=== PATIENT | male | born 1985 | race Two or more races ===

== ENCOUNTER 2016-07-03 12:55 | Emergency (ER) | payer MEDICARE, OTHER ==
[~2016-07-03] VITALS: Ht 177.8 cm; Wt 108.0 kg
[~2016-07-03 12:55] MED LIST: ATEN50TA PO; HYDR-2666 PO; TRAM-29 PO; ZOLP10TA PO
[2016-07-03 13:31] VITALS: BP 170/102
[2016-07-03] MEDS ORDERED: TRAM50TA PO (13:43)
--- NOTE | 2016-07-03 13:43 | PHYS DOC ---
Past Medical History Past Medical History: Diabetes-Type II, High Cholesterol, Hypertension, Other Additional Past Medical Histor: depression, bipolar, OCD, PTSD, CHRONIC BACK PAIN Past Surgical History: Other Additional Past Surgical Histo: right foot surgery, RIGHT FINGER SX Alcohol Use: None Drug Use: None Adult General Chief Complaint Chief Complaint: PAIN CONTROL HPI HPI Patient is a 31 year old male presents emergency room today with complaint of low back pain that is chronic in nature. Patient is reliant on take tramadol daily to help manage his neck pain as well as taking hydrocodone containing pain medication at night. Patient states she is currently out of medication. Patient states he is pending an appointment with his primary care doctor in 2 weeks for reevaluation. Patient states that he will call tomorrow morning to schedule follow-up appointment. Review of Systems Review of Systems Constitutional: Denies fever or chills [] Eyes: Denies change in visual acuity, redness, or eye pain [] HENT: Denies nasal congestion or sore throat [] Respiratory: Denies cough or shortness of breath [] Cardiovascular: No additional information not addressed in HPI [] GI: Denies abdominal pain, nausea, vomiting, bloody stools or diarrhea [] : Denies dysuria or hematuria [] Musculoskeletal: Patient reports nonradiating low back pain. Integument: Denies rash or skin lesions [] Neurologic: Patient denies saddle anesthesia or incontinence of urine and bowel. Patient denies any sensory changes or focal weakness. Endocrine: Denies polyuria or polydipsia [] Allergies Allergies Allergies Coded Allergies Type Severity Reaction Last Updated Verified oxycodone Allergy Intermediate Itching 07/07/15 Yes Physical Exam Physical Exam Constitutional: Well developed, well nourished, no acute distress, non-toxic appearance. [] HENT: Normocephalic, atraumatic, bilateral external ears normal, oropharynx moist, no oral exudates, nose normal. [] Eyes: PERRLA, EOMI, conjunctiva normal, no discharge. [] Neck: Normal range of motion, no tenderness, supple, no stridor. [] Cardiovascular:Heart rate regular rhythm, no murmur [] Lungs & Thorax: Bilateral breath sounds clear to auscultation [] Abdomen: Bowel sounds normal, soft, no tenderness, no masses, no pulsatile masses. [] Skin: Warm, dry, no erythema, no rash. [] Back: Patient's back is without any evidence of injury or deformity. There is [place] tenderness to patient's lower back without palpable defect, deformity or spasm. Extremities: No tenderness, no cyanosis, no clubbing, ROM intact, no edema. [] Neurologic: Alert and oriented X 3, normal motor function, normal sensory function, no focal deficits noted. [] Psychologic: Affect normal, judgement normal, mood normal. [] Current Patient Data Vital Signs Vital Signs Date Time Temp Pulse Resp B/P Pulse Ox O2 Delivery O2 Flow Rate FiO2 07/03/16 13:31 98.2 98 18 98 Room Air 98.2 EKG EKG [] Radiology/Procedures Radiology/Procedures [] Course & Med Decision Making Course & Med Decision Making Pertinent Labs and Imaging studies reviewed. (See chart for details) [] Dragon Disclaimer Dragon Disclaimer This electronic medical record was generated, in whole or in part, using a voice recognition dictation system. Departure Departure Impression: Primary Impression: Chronic back pain Disposition: 01 HOME, SELF-CARE Condition: GOOD Referrals: BLANQUITA IRVIN (PCP) Patient Instructions: Chronic Back Pain, Medication Refill, Emergency Department Additional Instructions: 1. As discussed, call your primary care doctor in the morning to to discuss refill of pain medication prior to your appointment. 2. Review the discharge instructions; especially for reasons to return the emergency department. Scripts Tramadol Hcl 50 Mg Tablet1 Tab PO PRN Q6HRS #30 TAB Prov:DAWSON MCGOVERN 07/03/16 DAWSON MCGOVERN Jul 03, 2016 13:43
== END 2016-07-03 13:47 | disposition home or self-care (01) ==
LOC: ER 12:55
DX: G89.29 Other chronic pain (principal); M54.2 Cervicalgia; E78.00 Pure hypercholesterolemia, unspecified; I10 Essential (primary) hypertension; E11.9 Type 2 diabetes mellitus without complications; F31.9 Bipolar disorder, unspecified; F43.10 Post-traumatic stress disorder, unspecified; M54.9 Dorsalgia, unspecified; Z88.5 Allergy status to narcotic agent
CPT/HCPCS: 99283

== ENCOUNTER 2016-11-20 02:45 | Emergency (ER) | payer MEDICARE, OTHER ==
[~2016-11-20] VITALS: Ht 177.8 cm; Wt 108.0 kg
[~2016-11-20 02:45] MED LIST changes: +TRAM50TA PO
[2016-11-20] MEDS ORDERED: ATENOLOL 25 MG TABLET. PO STA (03:08)
[2016-11-20] MEDS ORDERED: traMADol 50 MG TABLET PO ONE (03:30)
[2016-11-20] MEDS ORDERED: ATENOLOL 50 MG TABLET. PO ONE (03:30)
[2016-11-20] MEDS ORDERED: TRAM50TA PO (03:36)
--- NOTE | 2016-11-20 03:37 | PHYS DOC ---
Past Medical History Past Medical History: Hypertension Additional Past Medical Histor: depression, bipolar, OCD, PTSD, CHRONIC BACK PAIN Past Surgical History: Other Additional Past Surgical Histo: FOOT AND FINGER Additional Information: 0.25 PPD Alcohol Use: None Drug Use: None Adult General Chief Complaint Chief Complaint: PAIN CONTROL [facility] HPI Patient is a 31 year old male who presents with complaint of low back pain. Patient states that he has been having worsening symptoms over the past 3 days. Patient states that he has had long-standing history of chronic low back pain secondary to lower lumbar bulging disc. The patient states that he generally has localized pain in his low back which does not radiate down into his extremities. Patient denies any loss of bowel or bladder control or loss of feeling in the groin. Patient states that he has worsening pain with movement. 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 Patient also has history of hypertension and takes atenolol. Patient states that he has not taken his blood pressure medication in the last 36 hours. Patient rates his pain as 5 out of 10 currently. Patient states that he does not like taking medications for his pain, however he does state that when his symptoms get significant they usually respond well to tramadol. Patient states he has been taking ibuprofen at home with no relief in symptoms. Review of Systems Review of Systems Constitutional: Denies fever or chills [] HENT: Denies nasal congestion or sore throat [] Respiratory: Denies cough or shortness of breath [] Cardiovascular: No additional information not addressed in HPI [] GI: Denies abdominal pain, nausea, vomiting, bloody stools or diarrhea [] : Denies dysuria or hematuria [] Musculoskeletal: Back pain [] Integument: Denies rash or skin lesions [] Neurologic: Denies headache, focal weakness or sensory changes [] Current Medications Current Medications Current Medications Medications (Trade) Dose Ordered Sig/Bre Start Time Stop Time Status Last Admin Dose Admin Atenolol (Tenormin) 50 mg 1X ONCE 11/20/16 03:30 11/20/16 03:31 DC 11/20/16 03:28 50 MG Tramadol HCl (Ultram) 50 mg 1X ONCE 11/20/16 03:30 11/20/16 03:31 DC 11/20/16 03:27 50 MG Allergies Allergies Allergies Coded Allergies Type Severity Reaction Last Updated Verified oxycodone Allergy Intermediate Itching 07/07/15 Yes Physical Exam Physical Exam Constitutional: Alert, afebrile, appears in mild discomfort. [] HENT: Normocephalic, atraumatic, bilateral external ears normal, oropharynx moist, no oral exudates, nose normal. [] Eyes: PERRLA, EOMI, conjunctiva normal, no discharge. [] Neck: Normal range of motion, no tenderness, supple, no stridor. [] Cardiovascular:Heart rate regular rhythm, no murmur [] Lungs & Thorax: Bilateral breath sounds clear to auscultation [] Abdomen: Bowel sounds normal, soft, no tenderness, no masses, no pulsatile masses. [] Skin: Warm, dry, no erythema, no rash. [] Back: Lower lumbar bilateral paraspinous muscle tenderness to palpation, negative straight leg test, no midline tenderness. [] Extremities: No tenderness, no cyanosis, no clubbing, ROM intact, no edema. [] Neurologic: Alert and oriented X 3, normal motor function, normal sensory function, no focal deficits noted. [] Current Patient Data Vital Signs Vital Signs Date Time Temp Pulse Resp B/P (MAP) Pulse Ox O2 Delivery O2 Flow Rate FiO2 11/20/16 03:28 91 206/136 11/20/16 03:27 20 98 Room Air 11/20/16 02:58 98.6 98.6 EKG EKG Not performed [] Radiology/Procedures Radiology/Procedures Not performed [] Course & Med Decision Making Course & Med Decision Making Pertinent Labs and Imaging studies reviewed. (See chart for details) Patient presented with a significantly elevated blood pressure of 206/136. The patient states that he is not having any headaches, chest pain, or shortness of breath. Patient states that he feels fine and believes that his low back pain is causing his symptoms. The patient was offered IM medication to help with pain control, however patient declined stating "I don't like needles." The patient stated that he would prefer to have oral medication. Patient was given oral tramadol. Patient was also given 50 mg of atenolol. The patient does not wish to have blood drawn or further workup and states that he has a blood pressure cuff at home which he will continue to monitor his blood pressure. The patient was counseled on warning signs of severe hypertension including chest pain, shortness of breath, unilateral weakness, vision changes, and severe headaches. Patient was advised if he develops any of these symptoms to return immediately to the emergency department. Advised patient follow-up with his primary doctor in the next 3-4 days for reevaluation. Patient voiced understanding and in agreement with treatment plan. Dragon Disclaimer Dragon Disclaimer This electronic medical record was generated, in whole or in part, using a voice recognition dictation system. Departure Departure Impression: Primary Impression: Acute exacerbation of chronic low back pain Additional Impression: Hypertension Disposition: 01 HOME, SELF-CARE Condition: IMPROVED Referrals: BLANQUITA IRVIN (PCP) Patient Instructions: Chronic Back Pain, Hypertension Additional Instructions: Continue to monitor your blood pressure at home. Return to the emergency department if you develop any potential symptoms of severe high blood pressure including headache, vision changes, chest pain, shortness of breath, or unilateral weakness. Follow-up with your primary doctor in 3-4 days. Return to the emergency department for any other worrisome symptoms. Scripts Tramadol Hcl (TRAMADOL HCL) 50 Mg Tablet 50 MG PO Q4H Y for PAIN, #30 TAB Prov: GAUDENCIO PEREZ MD 11/20/16 Problem Qualifiers Additional Impression: Hypertension Hypertension type: essential hypertension Qualified Codes: I10 - Essential ( primary) hypertension GAUDENCIO PEREZ MD November 20, 2016 03:36
[2016-11-20 03:45] VITALS: BP 192/120
== END 2016-11-20 03:40 | disposition home or self-care (01) ==
LOC: ER 02:45
DX: G89.29 Other chronic pain (principal); M54.5 Low back pain; I10 Essential (primary) hypertension; F32.9 Major depressive disorder, single episode, unspecified; F42.9 Obsessive-compulsive disorder, unspecified; F43.10 Post-traumatic stress disorder, unspecified; F31.9 Bipolar disorder, unspecified; F17.200 Nicotine dependence, unspecified, uncomplicated; Z88.5 Allergy status to narcotic agent
CPT/HCPCS: 99283

== ENCOUNTER 2016-12-13 10:46 | Emergency (ER) | payer MEDICARE, OTHER ==
[~2016-12-13] VITALS: Ht 177.8 cm; Wt 123.4 kg
[~2016-12-13 10:46] MED LIST changes: -HYDR-2666 PO; +HYDR-2758 PO; -TRAM-29 PO; +TRAM-48 PO
[2016-12-13 11:15] VITALS: BP 204/137
[2016-12-13] MEDS ORDERED: traMADol 50 MG TABLET PO ONE (12:00)
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
[2016-12-13] MEDS ORDERED: CEPH500T PO (13:14)
[2016-12-13] MEDS ORDERED: TRAM-48 PO (13:14)
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
== END 2016-12-13 13:20 | disposition home or self-care (01) ==
LOC: ER 10:46
DX: S51.812A Laceration without foreign body of left forearm, initial encounter (principal); F43.10 Post-traumatic stress disorder, unspecified; F42.9 Obsessive-compulsive disorder, unspecified; F31.9 Bipolar disorder, unspecified; I10 Essential (primary) hypertension; G89.29 Other chronic pain; Z88.5 Allergy status to narcotic agent; W45.8XXA Other foreign body or object entering through skin, initial encounter; Y93.89 Activity, other specified; Y99.8 Other external cause status; Y92.89 Other specified places as the place of occurrence of the external cause
CPT/HCPCS: 73090; 99284

== ENCOUNTER 2016-12-28 19:13 | Emergency (ER) | payer MEDICARE, OTHER ==
[~2016-12-28] VITALS: Ht 177.8 cm; Wt 123.4 kg
[~2016-12-28 19:13] MED LIST changes: +CEPH500T PO
[2016-12-28] MEDS ORDERED: TRAM-48 PO (20:21)
--- NOTE | 2016-12-28 20:21 | PHYS DOC ---
Past Medical History Past Medical History: Hypertension Additional Past Medical Histor: depression, bipolar, OCD, PTSD, CHRONIC BACK PAIN Past Surgical History: Other Additional Past Surgical Histo: FOOT AND FINGER Alcohol Use: None Drug Use: None Adult General Chief Complaint Chief Complaint: LOWER BACK PAIN OR INJURY HPI HPI Patient is a 31 year old male with history of hypertension who presents today with mild bilateral low back pain. Patient states this pain is chronic. Patient denies any known injury. He states he works for [employer] and the job he does triggers this pain. Patient states wants one once in a while the pain radiates to the right hip. Patient denies any loss of bowel bladder function. Denies any numbness or tingling to bilateral lower extremities. Review of Systems Review of Systems Constitutional: Denies fever or chills [] Eyes: Denies change in visual acuity, redness, or eye pain [] HENT: Denies nasal congestion or sore throat [] Musculoskeletal: back pain ] Integument: Denies rash or skin lesions [] Neurologic: Denies headache, focal weakness or sensory changes [] Endocrine: Denies polyuria or polydipsia [] Allergies Allergies Allergies Coded Allergies Type Severity Reaction Last Updated Verified oxycodone Allergy Intermediate Itching 07/07/15 Yes Physical Exam Physical Exam Constitutional: Well developed, well nourished, no acute distress, non-toxic appearance. [] HENT: Normocephalic, atraumatic, bilateral external ears normal, oropharynx moist, no oral exudates, nose normal. [] Abdomen: Bowel sounds normal, soft, no tenderness, no masses, no pulsatile masses. [] Skin: Warm, dry, no erythema, no rash. [] Back: Overweight male, diffuse paraspinal muscle tenderness to bilateral low lumbar spine, no midline lumbar spine tenderness, no CVA tenderness. [] Extremities: No tenderness, no cyanosis, no clubbing, ROM intact, no edema. [] Neurologic: Alert and oriented X 3, normal motor function, normal sensory function, no focal deficits noted. [] Psychologic: Affect normal, judgement normal, mood normal. [] Current Patient Data Vital Signs Vital Signs Date Time Temp Pulse Resp B/P (MAP) Pulse Ox O2 Delivery O2 Flow Rate FiO2 12/28/16 19:36 98.5 96 20 96 Room Air 98.5 EKG EKG [] Radiology/Procedures Radiology/Procedures [] Course & Med Decision Making Course & Med Decision Making Pertinent Labs and Imaging studies reviewed. (See chart for details) Patient is in the ED with exacerbation of chronic back pain. Discharged with Ultram. Follow-up with his own PCP in 1-2 weeks. No symptoms of cauda equina syndrome. Dragon Disclaimer Dragon Disclaimer This electronic medical record was generated, in whole or in part, using a voice recognition dictation system. Departure Departure Impression: Primary Impression: Sciatica of right side Additional Impression: Chronic back pain Disposition: HOME, SELF-CARE Condition: STABLE Referrals: BLANQUITA IRVIN (PCP) Follow-up with your doctor in 1-2 weeks Patient Instructions: Back Exercises, Generic, SportsMed, Back Pain, Adult, [id number], Sciatica with Rehab-SportsMed Additional Instructions: You were seen for exacerbation of chronic back pain. Follow-up with your doctor as soon as you can. Come back to the ED if symptoms worsen. Scripts Tramadol Hcl (ULTRAM) 50 Mg Tablet 1 TAB PO Q6HRS, #30 TAB Prov: CHARLENE CARMICAHEL APRN 12/28/16 Problem Qualifiers Additional Impression: Chronic back pain Back pain location: low back pain Back pain laterality: bilateral Sciatica presence: with sciatica Sciatica laterality: sciatica of right side Qualified Codes: M54.41 - Lumbago with sciatica, right side; G89.29 - Other chronic pain CHARLENE CARMICHAEL APRN Dec 28, 2016 20:21
[2016-12-28 20:30] VITALS: BP 199/130
== END 2016-12-28 20:33 | disposition home or self-care (01) ==
LOC: ER 19:13
DX: G89.29 Other chronic pain (principal); M54.41 Lumbago with sciatica, right side; M25.551 Pain in right hip; F31.9 Bipolar disorder, unspecified; I10 Essential (primary) hypertension; F43.10 Post-traumatic stress disorder, unspecified; F42.9 Obsessive-compulsive disorder, unspecified; F32.9 Major depressive disorder, single episode, unspecified; Z88.5 Allergy status to narcotic agent
CPT/HCPCS: 99283

== ENCOUNTER 2017-04-05 20:52 | Emergency (ER) | payer OTHER ==
[2017-04-05 22:18] VITALS: BP 171/99
[2017-04-05] MEDS ORDERED: ATENOLOL 50 MG TABLET. PO ONE (22:30)
[2017-04-05] MEDS ORDERED: KETOROLAC 60 MG/2 ML INJ. IM ONE (22:30)
[2017-04-05] MEDS ORDERED: DEXAMETHASONE SOD PHOS 20 MG/5 ML VIAL. IM ONE (22:30)
[2017-04-05] MEDS ORDERED: METH4TAB2 PO (22:32)
[2017-04-05] MEDS ORDERED: CYCL10TA2 PO (22:32)
[2017-04-05] MEDS ORDERED: KETO10TA PO (22:32)
--- NOTE | 2017-04-05 22:32 | PHYS DOC ---
Past Medical History Past Medical History: Hypertension Additional Past Medical Histor: depression, bipolar, OCD, PTSD, CHRONIC BACK PAIN Past Surgical History: Other Additional Past Surgical Histo: FOOT AND FINGER Alcohol Use: None Drug Use: None Adult General Chief Complaint Chief Complaint: SHOULDER INJURY HPI HPI Patient is a 32 year old male with history of uncontrolled hypertension who presents with moderate right shoulder pain that began 3 weeks ago after he got injured at work. Patient states he already had x-rays done of the right shoulder at [facility] in the 1 negative. He states he has an appointment with his own primary care doctor in 3 weeks. He states this is too far out for him to wait. He states he is supposed to have an MRI. He states he does not feel he can wait 3 weeks for this. Review of Systems Review of Systems Constitutional: Denies fever or chills [] Eyes: Denies change in visual acuity, redness, or eye pain [] HENT: Denies nasal congestion or sore throat [] Respiratory: Denies cough or shortness of breath [] Cardiovascular: No additional information not addressed in HPI [] GI: Denies abdominal pain, nausea, vomiting, bloody stools or diarrhea [] : Denies dysuria or hematuria [] Musculoskeletal: Right anterior shoulder pain Integument: Denies rash or skin lesions [] Neurologic: Denies headache, focal weakness or sensory changes [] Current Medications Current Medications Current Medications Medications (Trade) Dose Ordered Sig/[facility] Start Time Stop Time Status Last Admin Dose Admin Atenolol (Tenormin) 50 mg 1X ONCE 04/05/17 22:30 04/05/17 22:31 04/05/17 22:18 50 MG Dexamethasone Sodium Phosphate (Decadron) 10 mg 1X ONCE 04/05/17 22:30 04/05/17 22:31 04/05/17 22:17 10 MG Ketorolac Tromethamine (Toradol Im) 60 mg 1X ONCE 04/05/17 22:30 04/05/17 22:31 04/05/17 22:17 60 MG Allergies Allergies Allergies Coded Allergies Type Severity Reaction Last Updated Verified oxycodone Allergy Intermediate Itching 07/07/15 Yes Physical Exam Physical Exam Constitutional: Well developed, well nourished, no acute distress, non-toxic appearance. [] HENT: Normocephalic, atraumatic, bilateral external ears normal, oropharynx moist, no oral exudates, nose normal. [] Eyes: PERRLA, EOMI, conjunctiva normal, no discharge. [] Neck: Normal range of motion, no tenderness, supple, no stridor. [] Cardiovascular:Heart rate regular rhythm, no murmur [] Lungs & Thorax: Bilateral breath sounds clear to auscultation [] Abdomen: Bowel sounds normal, soft, no tenderness, no masses, no pulsatile masses. [] Skin: Warm, dry, no erythema, no rash. [] Back: No tenderness, no CVA tenderness. [] Extremities: Right shoulder with no obvious deformity. No tenderness on exam but patient states whenever he has the pain is on the anterior aspect of the right shoulder. Full passive range of motion to the right shoulder including abduction and adduction. +2 right radial pulse. Adequate radial medial and ulnar sensation to the right upper extremity. Cap refill less than 2 seconds the right fingers. Neurologic: Alert and oriented X 3, normal motor function, normal sensory function, no focal deficits noted. [] Psychologic: Affect normal, judgement normal, mood normal. [] Current Patient Data Vital Signs Vital Signs Date Time Temp Pulse Resp B/P (MAP) Pulse Ox O2 Delivery O2 Flow Rate FiO2 04/05/17 22:18 88 171/99 04/05/17 21:12 98.7 20 97 Room Air 98.7 EKG EKG [] Radiology/Procedures Radiology/Procedures [] Course & Med Decision Making Course & Med Decision Making Pertinent Labs and Imaging studies reviewed. (See chart for details) Patient is in the ED with complaints of right shoulder pain for the last 3 weeks after work related injured. He already had x-rays which were negative. He is supposed to see the PCP in 3 weeks for MRI. He feels he can not wait for three weeks. Informed patient we do not do MRI for none emergent shoulder pain ED. Provided patient an orthopedic doctor and requested he contacts the orthopedic doctor for follow-up. His blood pressure was 200s over 100. Patient has history of uncontrolled hypertension. He has no headache or chest pain. He states he has atenolol for his blood pressure in the back of his truck and does not take the medication either. He cannot remember the last time he took his medicine he thinks maybe 4 days ago. I talked to patient again about the importance of compliance with high blood pressure medication. He was given atenolol in the ED and discharged. Discharged with Toradol and Medrol Dosepak. F/u with Orthopedic doctor provided to him. Bhupendra Disclaimer Bhupendra Disclaimer This electronic medical record was generated, in whole or in part, using a voice recognition dictation system. Departure Departure Impression: Primary Impression: Right shoulder pain Additional Impression: Accelerated hypertension Disposition: 01 HOME, SELF-CARE Condition: STABLE Referrals: NO PCP (PCP) follow up with your primary care doctor as soon as you can for chronic high blood pressure ROSEMARY EDWARDS II, MD call him tomorrow for followup appointment Patient Instructions: Hypertension, Shoulder Pain, [id number] Additional Instructions: You were seen for right shoulder pain that has been going on for 3 weeks. You need follow-up with the provided orthopedic doctor and see if they can do an MRI right for any further testing sooner. Your blood pressure has been constantly high. You must take your blood pressure medicine and you must follow- up with your own primary care doctor as soon as possible for blood pressure management. Scripts Cyclobenzaprine Hcl (CYCLOBENZAPRINE HCL) 10 Mg Tablet 1 TAB PO TID, #30 TAB Prov: CHARLENE CARMICHAEL APRN 04/05/17 Methylprednisolone (MEDROL) 4 Mg Tab.ds.pk 1 PKG PO UD, #1 PKG Prov: CHARLENE CARMICHAEL APRN 04/05/17 Ketorolac Tromethamine (KETOROLAC TROMETHAMINE) 10 Mg Tablet 1 TAB PO BID, #10 TAB Prov: CHARLENE CARMICHAEL APRN 04/05/17 Problem Qualifiers Primary Impression: Right shoulder pain Chronicity: acute Qualified Codes: M25.511 - Pain in right shoulder CHARLENE CARMICHAEL MAURICE Apr 05, 2017 22:32
== END 2017-04-05 22:33 | disposition home or self-care (01) ==
LOC: ER 20:52
DX: M25.511 Pain in right shoulder (principal); I10 Essential (primary) hypertension; F31.9 Bipolar disorder, unspecified; G89.29 Other chronic pain; F42.9 Obsessive-compulsive disorder, unspecified; F43.10 Post-traumatic stress disorder, unspecified; Z88.6 Allergy status to analgesic agent; X58.XXXA Exposure to other specified factors, initial encounter; Y93.89 Activity, other specified; Y99.8 Other external cause status; Y92.89 Other specified places as the place of occurrence of the external cause
CPT/HCPCS: 96372; 99284; J1100; J1885